=== PATIENT | female | born 1960 ===

== ENCOUNTER 2021-09-26 14:59 | Observation (INO) | payer MEDICAID ==
[2021-09-26] MEDS ORDERED: Potassium Chloride 40 MEQ/20 ML SDV IV SCH (15:30)
[2021-09-26] MEDS ORDERED: Loperamide 2 MG Cap PO PRN (15:39)
[2021-09-26] MEDS ORDERED: Magnesium Oxide 400 MG Tab PO ONE (16:00)
[2021-09-26] MEDS ORDERED: Potassium Chloride Riders 50 ML IV SCH (16:00)
[2021-09-26] MEDS ORDERED: Ondansetron 4 MG/2 ML SDV IVPUSH PRN (16:01)
[2021-09-26] MEDS: Nicotine 21 MG/24 Hr Patch TRDERM SCH (16:03)
[2021-09-26] MEDS: Potassium Chloride Riders 50 ML IV SCH ×5 (16:14→22:53)
[2021-09-26] MEDS: Sodium Chloride 0.9% 1,000 ML IV SCH (16:15)
[2021-09-27] MEDS: Potassium Chloride Riders 50 ML IV SCH (00:09)
[2021-09-27] MEDS: Sodium Chloride 0.9% 1,000 ML IV SCH ×2 (00:38→09:11)
[2021-09-27] MEDS: Nicotine 21 MG/24 Hr Patch TRDERM SCH (07:54)
[2021-09-27] MEDS ORDERED: Ketorolac 30 MG/ML SDV IVPUSH ONE (09:09)
== END 2021-09-27 13:15 | disposition home or self-care (01) ==
LOC: LB.MS 15:17
PROVIDERS: ADMIT Nurse Practitioner Family; ATTEND Nurse Practitioner Family
DX: E87.6 Hypokalemia (principal); K52.9 Noninfective gastroenteritis and colitis, unspecified; F17.210 Nicotine dependence, cigarettes, uncomplicated; E86.0 Dehydration; Z79.1 Long term (current) use of non-steroidal anti-inflammatories (NSAID); Z79.83 Long term (current) use of bisphosphonates; Z87.19 Personal history of other diseases of the digestive system; Z20.822 Contact with and (suspected) exposure to COVID-19
CPT/HCPCS: 36415; 80053; 83735; 87045; 87046; 87427; 87493; 96361; 96374; A9270-GY; G0378; G0379; J1885; J3480; J7030; U0002

== ENCOUNTER 2022-01-09 09:02 | Day surgery (SDC) | payer MEDICAID ==
[~2022-01-09 09:02] MED LIST: Metoclopramide 10 MG/2 ML SDV IV PRN
[2022-01-09] MEDS ORDERED: Sodium Chloride 0.9% 1,000 ML IV SCH (09:45)
== END 2022-01-09 12:55 | disposition home or self-care (01) ==
LOC: LB.SDS 09:02
PROVIDERS: ATTEND Surgery
DX: R19.7 Diarrhea, unspecified (principal); K29.50 Unspecified chronic gastritis without bleeding; F17.200 Nicotine dependence, unspecified, uncomplicated
CPT/HCPCS: 43239; 45380; J2704; J2765; J7030

== ENCOUNTER 2022-01-17 13:39 | Inpatient (IN) | payer MEDICAID ==
[2022-01-17] MEDS ORDERED: Potassium Chloride Riders 10 MEQ in Premix Bag 1 BAG IV ONE (17:12)
[2022-01-17] MEDS ORDERED: Iopamidol 612 MG/ML 100 ML Bottle IV PRN (17:16)
[2022-01-17] MEDS ORDERED: Apixaban 5 MG Tab PO SCH (17:30)
[2022-01-17] MEDS ORDERED: Sodium Chloride 0.9% 50 ML SDV FLUSH SCH (17:30)
[2022-01-17] MEDS ORDERED: Potassium Chloride Riders 50 ML ONE (18:07)
[2022-01-17] MEDS ORDERED: Albuterol/Ipratropium 3.0-0.5 MG/3 ML Neb Soln NEB ONE (18:55)
[2022-01-17] MEDS: Sodium Chloride 0.9% 1,000 ML IV SCH (18:57)
[2022-01-17] MEDS ORDERED: Spironolactone 100 MG Tab PO ONE (19:03)
[2022-01-17] MEDS: Spironolactone 25 MG Tab PO SCH (19:46)
[2022-01-17] MEDS ORDERED: Ondansetron 4 MG Tab.DIS ONE (19:55)
[2022-01-17] MEDS: Nicotine 14 MG/24 Hr Patch TRDERM SCH (20:00)
[2022-01-17] MEDS: Ondansetron 4 MG Tab.DIS PO PRN (20:00)
[2022-01-17] MEDS: Potassium Chloride 10 MEQ Tab.ER PO SCH (20:00)
[2022-01-18] MEDS: Sodium Chloride 0.9% 1,000 ML IV SCH (07:13)
[2022-01-18] MEDS: Nicotine 14 MG/24 Hr Patch TRDERM SCH (07:56)
[2022-01-18] MEDS: Spironolactone 25 MG Tab PO SCH (07:56)
[2022-01-18] MEDS: Potassium Chloride 10 MEQ Tab.ER PO SCH ×2 (07:57→19:27)
[2022-01-18] MEDS: Enoxaparin 40 MG/0.4 ML Syringe SUBCUT SCH (07:58)
[2022-01-18] MEDS: Morphine 4 MG/ML VIAL IVPUSH PRN (19:27)
[2022-01-18] MEDS: Albuterol/Ipratropium 3.0-0.5 MG/3 ML Neb Soln NEB SCH ×2 (19:27→23:24)
[2022-01-18] MEDS: Spironolactone 100 MG Tab PO SCH (19:27)
[2022-01-18] MEDS ORDERED: Sodium Chloride 0.9% 10 ML Syringe FLUSH SCH (20:00)
[2022-01-19] MEDS: Albuterol/Ipratropium 3.0-0.5 MG/3 ML Neb Soln NEB SCH ×5 (04:29→18:22)
[2022-01-19] MEDS: Enoxaparin 40 MG/0.4 ML Syringe SUBCUT SCH (07:23)
[2022-01-19] MEDS: Potassium Chloride 10 MEQ Tab.ER PO SCH ×2 (07:24→19:28)
[2022-01-19] MEDS: Nicotine 14 MG/24 Hr Patch TRDERM SCH (07:24)
[2022-01-19] MEDS: Sodium Chloride 0.9% 10 ML Syringe FLUSH PRN ×2 (07:24→19:28)
[2022-01-19] MEDS: Spironolactone 100 MG Tab PO SCH ×2 (07:24→19:28)
[2022-01-19] MEDS: Furosemide 20 MG Tab PO SCH ×2 (11:18→15:01)
[2022-01-19] MEDS: Morphine 4 MG/ML VIAL IVPUSH PRN (20:50)
[2022-01-20] MEDS: Albuterol/Ipratropium 3.0-0.5 MG/3 ML Neb Soln NEB SCH ×6 (02:11→20:00)
[2022-01-20] MEDS: Nicotine 14 MG/24 Hr Patch TRDERM SCH (08:24)
[2022-01-20] MEDS: Potassium Chloride 10 MEQ Tab.ER PO SCH ×2 (08:25→20:01)
[2022-01-20] MEDS: Furosemide 20 MG Tab PO SCH ×2 (08:25→15:41)
[2022-01-20] MEDS: Enoxaparin 40 MG/0.4 ML Syringe SUBCUT SCH (08:25)
[2022-01-20] MEDS: Spironolactone 100 MG Tab PO SCH ×2 (08:25→20:01)
[2022-01-20] MEDS: Magnesium Oxide 400 MG Tab PO SCH ×2 (11:21→20:01)
[2022-01-20] MEDS ORDERED: Acetaminophen 650 MG Tab.ER ONE (19:59)
[2022-01-20] MEDS ORDERED: Acetaminophen 325 MG Tab ONE (20:00)
[2022-01-21] MEDS: Albuterol/Ipratropium 3.0-0.5 MG/3 ML Neb Soln NEB SCH ×6 (00:37→19:13)
[2022-01-21] MEDS: Nicotine 14 MG/24 Hr Patch TRDERM SCH (08:03)
[2022-01-21] MEDS: Magnesium Oxide 400 MG Tab PO SCH ×2 (08:04→19:13)
[2022-01-21] MEDS: Spironolactone 100 MG Tab PO SCH ×2 (08:04→19:13)
[2022-01-21] MEDS: Furosemide 20 MG Tab PO SCH ×2 (08:05→15:54)
[2022-01-21] MEDS: Potassium Chloride 10 MEQ Tab.ER PO SCH ×2 (08:05→19:13)
[2022-01-21] MEDS: Enoxaparin 40 MG/0.4 ML Syringe SUBCUT SCH (08:05)
[2022-01-21] MEDS ORDERED: Sodium Chloride 0.9% 1,000 ML IV SCH (11:30)
[2022-01-21] MEDS: Sodium Chloride 1 GM Tab PO SCH (19:13)
[2022-01-21] MEDS: traMADol 50 MG Tab PO PRN (21:18)
[2022-01-22 02:11] LABS: HBSAG SCREEN Negative (Negative); HCV AB <0.1 s/co ratio (0.0-0.9); HEP A AB, IGM Negative (Negative); HEP B CORE AB, IGM Negative (Negative)
[2022-01-22] MEDS ORDERED: Ondansetron 4 MG/2 ML SDV IVPUSH PRN (03:45)
[2022-01-22] MEDS: Albuterol/Ipratropium 3.0-0.5 MG/3 ML Neb Soln NEB SCH ×7 (03:48→23:41)
[2022-01-22] MEDS: Nicotine 14 MG/24 Hr Patch TRDERM SCH (07:53)
[2022-01-22] MEDS: Enoxaparin 40 MG/0.4 ML Syringe SUBCUT SCH (07:53)
[2022-01-22] MEDS: Sodium Chloride 0.9% 10 ML Syringe FLUSH PRN (07:55)
[2022-01-22] MEDS: Furosemide 20 MG Tab PO SCH (07:55)
[2022-01-22] MEDS: Sodium Chloride 1 GM Tab PO SCH (07:55)
[2022-01-22] MEDS: Magnesium Oxide 400 MG Tab PO SCH ×2 (07:55→19:10)
[2022-01-22] MEDS: Spironolactone 100 MG Tab PO SCH ×2 (07:55→19:10)
[2022-01-22] MEDS: Potassium Chloride 10 MEQ Tab.ER PO SCH ×2 (07:55→19:11)
[2022-01-22] MEDS: traMADol 50 MG Tab PO PRN (08:37)
[2022-01-22] MEDS ORDERED: Furosemide 40 MG/4 ML VIAL IVPUSH ONE (10:05)
[2022-01-22] MEDS: Furosemide 40 MG/4 ML VIAL IVPUSH SCH (19:11)
[2022-01-23] MEDS: Albuterol/Ipratropium 3.0-0.5 MG/3 ML Neb Soln NEB SCH ×2 (03:10→08:20)
[2022-01-23] MEDS: Magnesium Oxide 400 MG Tab PO SCH ×2 (08:20→19:57)
[2022-01-23] MEDS: Spironolactone 100 MG Tab PO SCH ×2 (08:20→19:57)
[2022-01-23] MEDS: Potassium Chloride 10 MEQ Tab.ER PO SCH ×2 (08:21→19:57)
[2022-01-23] MEDS: Furosemide 40 MG/4 ML VIAL IVPUSH SCH ×2 (08:21→19:57)
[2022-01-23] MEDS: Enoxaparin 40 MG/0.4 ML Syringe SUBCUT SCH (08:21)
[2022-01-23] MEDS: Sodium Chloride 0.9% 10 ML Syringe FLUSH PRN ×2 (08:25→16:00)
[2022-01-23] MEDS: Nicotine 14 MG/24 Hr Patch TRDERM SCH (08:25)
[2022-01-23] MEDS: Albuterol/Ipratropium 3.0-0.5 MG/3 ML Neb Soln NEB PRN (19:57)
[2022-01-23] MEDS ORDERED: Calcium Carbonate 500 MG Tab.Chew PO PRN (20:45)
[2022-01-24] MEDS: Nicotine 14 MG/24 Hr Patch TRDERM SCH (07:56)
[2022-01-24] MEDS: Enoxaparin 40 MG/0.4 ML Syringe SUBCUT SCH (07:57)
[2022-01-24] MEDS: Furosemide 40 MG/4 ML VIAL IVPUSH SCH ×2 (07:59→19:38)
[2022-01-24] MEDS: Potassium Chloride 10 MEQ Tab.ER PO SCH ×2 (08:00→20:59)
[2022-01-24] MEDS: Spironolactone 100 MG Tab PO SCH ×2 (08:00→20:59)
[2022-01-24] MEDS: Magnesium Oxide 400 MG Tab PO SCH ×2 (08:00→20:59)
[2022-01-24] MEDS: Ondansetron 4 MG Tab.DIS PO PRN (15:37)
[2022-01-24] MEDS: Melatonin 3 MG Tab PO PRN (20:59)
[2022-01-24] MEDS: Albuterol/Ipratropium 3.0-0.5 MG/3 ML Neb Soln NEB PRN (20:59)
[2022-01-25] MEDS: Potassium Chloride 10 MEQ Tab.ER PO SCH ×2 (08:20→19:05)
[2022-01-25] MEDS: Spironolactone 100 MG Tab PO SCH ×2 (08:20→19:05)
[2022-01-25] MEDS: Enoxaparin 40 MG/0.4 ML Syringe SUBCUT SCH (08:20)
[2022-01-25] MEDS: Magnesium Oxide 400 MG Tab PO SCH ×2 (08:20→19:05)
[2022-01-25] MEDS: Furosemide 40 MG/4 ML VIAL IVPUSH SCH ×2 (08:20→19:05)
[2022-01-25] MEDS: Nicotine 14 MG/24 Hr Patch TRDERM SCH (08:22)
[2022-01-25 12:11] LABS: COMMENTS: Note: (.)
[2022-01-25] MEDS: Melatonin 3 MG Tab PO PRN (19:44)
[2022-01-25] MEDS: traMADol 50 MG Tab PO PRN (19:44)
[2022-01-25] MEDS ORDERED: Magnesium Sulfate/D5W 1 GM/100 ML Premix Bag IV ONE (22:58)
[2022-01-26] MEDS: traMADol 50 MG Tab PO PRN ×2 (05:16→11:17)
[2022-01-26] MEDS: Nicotine 14 MG/24 Hr Patch TRDERM SCH (08:09)
[2022-01-26] MEDS: Enoxaparin 40 MG/0.4 ML Syringe SUBCUT SCH (08:10)
[2022-01-26] MEDS: Furosemide 40 MG/4 ML VIAL IVPUSH SCH (08:11)
[2022-01-26] MEDS: Potassium Chloride 10 MEQ Tab.ER PO SCH ×2 (08:11→19:19)
[2022-01-26] MEDS: Magnesium Oxide 400 MG Tab PO SCH ×2 (08:11→19:19)
[2022-01-26] MEDS: Spironolactone 100 MG Tab PO SCH ×2 (08:11→19:20)
[2022-01-26] MEDS: Furosemide 80 MG Tab PO SCH (17:13)
[2022-01-26] MEDS ORDERED: Furosemide 80 MG Tab PO SCH (18:00)
[2022-01-26] MEDS: Sodium Chloride 0.9% 10 ML Syringe FLUSH PRN (19:20)
[2022-01-26] MEDS: Melatonin 3 MG Tab PO PRN (21:10)
[2022-01-27] MEDS: Enoxaparin 40 MG/0.4 ML Syringe SUBCUT SCH (07:27)
[2022-01-27] MEDS: Nicotine 14 MG/24 Hr Patch TRDERM SCH (07:28)
[2022-01-27] MEDS: Magnesium Oxide 400 MG Tab PO SCH ×2 (07:29→19:26)
[2022-01-27] MEDS: Spironolactone 100 MG Tab PO SCH ×2 (07:29→19:26)
[2022-01-27] MEDS: Furosemide 80 MG Tab PO SCH ×2 (07:29→16:35)
[2022-01-27] MEDS: Potassium Chloride 10 MEQ Tab.ER PO SCH ×2 (07:30→19:26)
[2022-01-27] MEDS ORDERED: Lidocaine 1% 5 ML VIAL INJECT ONE (14:25)
[2022-01-28] MEDS: Furosemide 80 MG Tab PO SCH (08:31)
[2022-01-28] MEDS: Potassium Chloride 10 MEQ Tab.ER PO SCH (08:31)
[2022-01-28] MEDS: Enoxaparin 40 MG/0.4 ML Syringe SUBCUT SCH (08:31)
[2022-01-28] MEDS: Spironolactone 100 MG Tab PO SCH (08:32)
[2022-01-28] MEDS: Magnesium Oxide 400 MG Tab PO SCH (08:32)
[2022-01-28] MEDS: Nicotine 14 MG/24 Hr Patch TRDERM SCH (08:32)
== END 2022-01-28 12:53 | disposition home or self-care (01) | DRG 433 ==
LOC: LB.ED 13:39 → LB.MS 19:20
PROVIDERS: ADMIT Surgery; ATTEND Surgery
DX: K70.31 Alcoholic cirrhosis of liver with ascites (principal); E87.1 Hypo-osmolality and hyponatremia; K76.6 Portal hypertension; E87.6 Hypokalemia; K76.0 Fatty (change of) liver, not elsewhere classified; R79.1 Abnormal coagulation profile; Z20.822 Contact with and (suspected) exposure to COVID-19; Z86.19 Personal history of other infectious and parasitic diseases
CPT/HCPCS: 36415; 74176; 74177; 80053; 80074; 82105; 82140; 82746; 83605; 83690; 83735; 83880; 85025; 85027; 85379; 85610; 87070; 87205; 89051; 93005; 93010; 96365; 99222; 99232; 99238; 99285-25; A9270-GY; J1650; J1940; J2270; J2405; J3475; J3480; J3490; J7030; J7620; Q0162; U0002